=== PATIENT | female | born 1985 | race American Indian/Alaskan Native ===

== ENCOUNTER 2018-09-12 01:02 | Emergency (ER) | payer MEDICAID ==
[2018-09-12 05:25] VITALS: BP 124/81
[2018-09-12] MEDS ORDERED: IBUPROFEN PO ONE (07:59)
--- NOTE | 2018-09-12 08:05 | Emergency Department Report ---
HPI - General Chief Complaint: Extremity Injury, Lower Time Seen by Provider: 09/12/18 07:40 - HPI HPI: This is a 32-year-old female presents ED complaining of pain to the right anterior jacques after accidentally hitting it on the TV box yesterday. Patient says she is presents throbbing pain. This is associated fall or hit her head. She denies any fever, loss of consciousness, ED Past Medical Hx - Past Medical History Previous Medical History?: No - Surgical History Past Surgical History?: Yes Hx Breast Surgery: Yes (reduction) - Social History Smoking Status: Current Every Day Smoker - Medications Home Medications: Home Medications Medication Instructions Recorded Confirmed Last Taken Type Ibuprofen [Motrin 800 MG tab] 800 mg PO TID #20 tablet 09/12/18 Unknown Rx ED Review of Systems ROS: Stated complaint: FALL Other details as noted in HPI Comment: All other systems reviewed and negative Physical Exam - Physical Exam Vital Signs: Vital Signs 09/12/18 09/12/18 09/12/18 01:05 01:06 05:22 Temperature 98.9 F 98.3 F 97.6 F Pulse Rate 102 H 103 H 86 Respiratory 18 18 16 Rate Blood Pressure 122/68 122/68 124/81 O2 Sat by Pulse 100 99 100 Oximetry Physical Exam: GENERAL: Alert and oriented x3, no apparent distress, Normal Gait, atraumatic. HEAD: Head is normocephalic and a-traumatic. NECK: Supple. Non edematous, EXTREMITIES/MUSCULOSKELETAL: No cyanosis, clubbing, rash, lesions or edema. Full ROM bilaterally. LE Pulses 2+ bilaterally. LE and UE 5+ strength bilaterally, no bruising, no lesions. Mild tenderness to palpation of the anterior jacques otherwise no deformity seen NEUROLOGIC: The patient is cooperative with no focal neurologic deficits. SKIN: Warm and dry, No lesions, No ulceration or induration present. ED Course Vital Signs 09/12/18 09/12/18 09/12/18 01:05 01:06 05:22 Temperature 98.9 F 98.3 F 97.6 F Pulse Rate 102 H 103 H 86 Respiratory 18 18 16 Rate Blood Pressure 122/68 122/68 124/81 O2 Sat by Pulse 100 99 100 Oximetry ED Medical Decision Making - Medical Decision Making 30-year-old female presents with a jacques pain from injury. Discussed heat compression 3 times a day Motrin as if her pain Vital signs are normal patient is no acute distress Critical care attestation.: If time is entered above; I have spent that time in minutes in the direct care of this critically ill patient, excluding procedure time. ED Disposition Clinical Impression: Pain in right jacques Disposition: DC-01 TO HOME OR SELFCARE Is pt being admited?: No Does the pt Need Aspirin: No Condition: Stable Instructions: Arthralgia (ED), Heat Pack Application (ED) Additional Instructions: Make sure to follow up with the primary care physician as discussed. Take all your medications as you've been prescribed. If you have any worsening symptoms or develop new symptoms please return to ED immediately. Prescriptions: Ibuprofen [Motrin 800 MG tab] 800 mg PO TID #20 tablet [facility] [Primary Care Provider[facility] - 3-5 Days Forms: Work/School Release Form(ED) Time of Disposition: 08:07
== END 2018-09-12 08:47 | disposition home or self-care (01) ==
LOC: ED 01:02
DX: M79.661 Pain in right lower leg (principal); F17.200 Nicotine dependence, unspecified, uncomplicated; W22.8XXA Striking against or struck by other objects, initial encounter; Y93.89 Activity, other specified; Y92.098 Other place in other non-institutional residence as the place of occurrence of the external cause; Y99.8 Other external cause status
CPT/HCPCS: 99282

== ENCOUNTER 2019-03-20 23:22 | Emergency (ER) | payer MEDICAID ==
--- NOTE | 2019-03-20 23:36 | Emergency Department Report ---
ED Psych HPI - General Stated Complaint: LORENZO JACKSON Time Seen by Provider: 03/20/19 23:30 - History of Present Illness Initial Comments: This is a 33-year-old female nontoxic, well nourished in appearance, no acute signs of distress presents to the ED with c/o of depression with audio hallucinations. Stated has not been taking her psych medications x1 week. Stated that voices are killing her to put self under ground. Denies any SI/HI. Patient denies any fever, chills, nausea, vomiting, chest pain, shortness of breath, headache or stiff neck. Patient otherwise denies any symptoms. Denies any alcohol or drug consumption. Patient denies any allergies. MD Complaint: feels depressed, other (audio hallucinations) Associated Psychiatric Symptoms: depression, racing thoughts, auditory hallucinations History of same: Yes Quality: constant Improves With: none Worsens With: none Associated Symptoms: denies other symptoms. denies: confusion, headache, shortness of breath, nausea, vomiting, syncope, insomnia - Related Data Previous Rx's Medication Instructions Recorded Last Taken Type Ibuprofen [Motrin 800 MG tab] 800 mg PO TID #20 tablet 09/12/18 Unknown Rx Allergies Allergy/AdvReac Type Severity Reaction Status Date / Time No Known Allergies Allergy Unverified 09/12/18 01:04 ED Review of Systems ROS: Stated complaint: LORENZO EVAL Other details as noted in HPI Constitutional: denies: chills, fever Eyes: denies: eye pain, eye discharge, vision change ENT: denies: ear pain, throat pain Respiratory: denies: cough, shortness of breath, wheezing Cardiovascular: denies: chest pain, palpitations Endocrine: no symptoms reported Gastrointestinal: denies: abdominal pain, nausea, diarrhea Genitourinary: denies: urgency, dysuria, discharge Musculoskeletal: denies: back pain, joint swelling, arthralgia Skin: denies: rash, lesions Neurological: denies: headache, weakness, paresthesias Psychiatric: depression, auditory hallucinations. denies: anxiety, visual hallucinations, homicidal thoughts, suicidal thoughts Hematological/Lymphatic: denies: easy bleeding, easy bruising ED Past Medical Hx - Surgical History Hx Breast Surgery: Yes (reduction) - Social History Smoking Status: Current Every Day Smoker - Medications Home Medications: Home Medications Medication Instructions Recorded Confirmed Last Taken Type Ibuprofen [Motrin 800 MG tab] 800 mg PO TID #20 tablet 09/12/18 Unknown Rx ED Physical Exam - General General appearance: alert, in no apparent distress - Head Head exam: Present: atraumatic, normocephalic - Neck Neck exam: Present: normal inspection, full ROM. Absent: tenderness, meningismus, lymphadenopathy - Respiratory Respiratory exam: Present: normal lung sounds bilaterally. Absent: respiratory distress, wheezes - Cardiovascular Cardiovascular Exam: Present: regular rate, normal rhythm - Extremities Exam Extremities exam: Present: full ROM - Back Exam Back exam: Present: full ROM - Neurological Exam Neurological exam: Present: alert, oriented X3, normal gait - Psychiatric Psychiatric exam: Present: depressed, anxious, flat affect. Absent: agitated, manic, homicidal ideation, suicidal ideation - Skin Skin exam: Present: warm, dry, intact, normal color. Absent: rash ED Course - Reevaluation(s) Reevaluation #1: 03/20/19 23:37 Patient is speaking in full sentences with no signs of distress noted. ED Medical Decision Making - Medical Decision Making This is a 33-year-old female that presents with Depression and auditory hallucination. Patient is currently stable and was examined by me. Patient has been placed on 1013 and patient to be examined and evaluated by psychiatrist. Patient will remain in the ER until cleared by psychiatry. Patient is medically cleared in the ED for psychiatry treatment facility. At time of admission, the patient does not seem toxic or ill in appearance. No acute signs of distress noted. Patient agrees to admission treatment plan of care. No further questions noted by the patient. Critical care attestation.: If time is entered above; I have spent that time in minutes in the direct care of this critically ill patient, excluding procedure time. ED Disposition Clinical Impression: Auditory hallucination Depression Qualifiers: Depression Type: unspecified Qualified Code(s): F32.9 - Major depressive disorder, single episode, unspecified Psychosis Qualifiers: Psychosis type: unspecified psychosis type Qualified Code(s): F29 - Unspecified psychosis not due to a substance or known physiological condition Disposition: DC/TX-65 PSY HOSP/PSY UNIT Is pt being admited?: No Condition: Stable
[2019-03-21 00:10] LABS: Basophils # (Auto) 0.1 K/mm3 (0.0-0.1); Basophils % (Auto) 1.3 % (0.0-1.8); Eosinophils # (Auto) 0.1 K/mm3 (0.0-0.4); Hematocrit 34.3 % (30.3-42.9); Hemoglobin 11.2 gm/dl (10.1-14.3); Lymphocytes % (Auto) 35.4 % (13.4-35.0); Mean Corpuscular HGB Conc 33 % (30-34); Mean Corpuscular Volume 83 fl (79-97); Monocytes # (Auto) 0.6 K/mm3 (0.0-0.8); Monocytes % (Auto) 7.1 % (0.0-7.3); Platelet Count 307 K/mm3 (140-440); Red Blood Count 4.11 M/mm3 (3.65-5.03); Red Cell Distribution Width 18.1 % (13.2-15.2)
[2019-03-21 00:22] LABS: Alanine Aminotransferase 9 units/L (7-56); Albumin 4.1 g/dL (3.9-5); BUN/Creatinine Ratio 18; Blood Urea Nitrogen 11 mg/dL (7-17); Calcium 9.1 mg/dL (8.4-10.2); Hemolysis Index 10
[2019-03-21 00:32] LABS: Amphetamine Screen,Urine PRESUMPTIVE NEGATIVE; Benzodiazepines Screen,Urine PRESUMPTIVE NEGATIVE; Cocaine Screen,Urine PRESUMPTIVE NEGATIVE; Methadone Screen,Urine PRESUMPTIVE NEGATIVE; Opiate Screen,Urine PRESUMPTIVE NEGATIVE
[2019-03-21 00:35] LABS: Bilirubin,Urine NEG (Negative); Color,Urine Colorless (Yellow)
[2019-03-21 00:36] LABS: Bacteria,Urine 1+ /HPF (Negative); Blood,Urine NEG (Negative); Protein,Urine <15 mg/dL mg/dL (Negative); RBC,Urine < 1.0 /HPF (0.0-6.0); Urobilinogen,Urine < 2.0 mg/dL (<2.0)
[2019-03-21 00:39] LABS: Cannabinoid Screen,Urine PRESUMPTIVE POSITIVE
--- NOTE | 2019-03-21 09:29 | Consultation ---
History of Present Illness - Reason for Consult Consult date: 03/21/19 Reason for consult: Mental Health Evaluation Requesting physician: JALEEL BERMEO - Chief Complaint Chief complaint: "Why do you want to talk" - History of Present Psychiatric Illness 33 y.o. AA female who presented to the ER for depression and AH's. Today the patient was calm, but uncooperative during the assessment. Several attempts was made to engage the patient, but was unsuccessful. Medications and Allergies Allergies Allergy/AdvReac Type Severity Reaction Status Date / Time No Known Allergies Allergy Unverified 09/12/18 01:04 Home Medications Medication Instructions Recorded Confirmed Last Taken Type Ibuprofen [Motrin 800 MG tab] 800 mg PO TID #20 tablet 09/12/18 03/21/19 Unknown Rx Past psychiatric history - Past Medical History Past Medical History: other (Unable to obtain ) Past Surgical History: Other (Unable to obtain) - past Psychiatric treatment and history psychiatric treatment history: Unable to obtain a psy hx and fam psy hx. - Social History Social history: other (Unable to obtain ) Mental Status Exam - Vital signs Last Vital Signs Temp 98.0 F 03/20/19 23:45 Pulse 90 03/20/19 23:45 Resp 18 03/20/19 23:45 BP 113/71 03/20/19 23:45 Pulse Ox 99 03/20/19 23:45 - Exam Narrative exam: Unable to complete the MSE because the patient would not cooperate. Results Result Diagrams: 03/20/19 23:37 03/20/19 23:37 Abnormal lab results 03/20/19 03/20/19 03/20/19 Range/Units 23:37 23:37 23:37 MCH 27 L (28-32) pg RDW 18.1 H (13.2-15.2) % Lymph % (Auto) 35.4 H (13.4-35.0) % Creatinine 0.6 L (0.7-1.2) mg/dL Urine pH (5.0-7.0) Urine WBC (Auto) (0.0-6.0) /HPF Salicylates < 0.3 L (2.8-20.0) mg/dL Acetaminophen (10.0-30.0) ug/mL 03/20/19 03/21/19 Range/Units 23:37 00:05 MCH (28-32) pg RDW (13.2-15.2) % Lymph % (Auto) (13.4-35.0) % Creatinine (0.7-1.2) mg/dL Urine pH 8.0 H (5.0-7.0) Urine WBC (Auto) 7.0 H (0.0-6.0) /HPF Salicylates (2.8-20.0) mg/dL Acetaminophen < 5.0 L (10.0-30.0) ug/mL All other labs normal. Assessment and Plan Assessment and plan: Impression: Today the patient would not cooperate during the assessment. The patient was positive for marijuana. Recommendation/Plan: Continue 1013 and attempt to reassess the patient in 24 hours. Dispo: The patient was referred to inpatient psy services. Will staff with Dr Analia Bazzi.
[2019-03-21 10:11] VITALS: BP 117/68
== END 2019-03-21 12:46 ==
LOC: EEVIPCON 23:22 → ED 23:22
DX: F32.9 Major depressive disorder, single episode, unspecified (principal); R44.0 Auditory hallucinations; F17.200 Nicotine dependence, unspecified, uncomplicated; Z98.890 Other specified postprocedural states; Z79.899 Other long term (current) drug therapy
CPT/HCPCS: 36415; 80053; 80307; 80320; 81001; 84703; 85025; G0480

== ENCOUNTER 2019-06-25 22:21 | Emergency (ER) | payer MEDICAID ==
--- NOTE | 2019-06-25 23:13 | Emergency Department Report ---
ED Psych HPI - General Chief Complaint: Psych Stated Complaint: LORENZO JACKSON Time Seen by Provider: 06/25/19 23:06 Source: patient, EMS, RN notes reviewed, old records reviewed Mode of arrival: Ambulatory Limitations: No Limitations - History of Present Illness Initial Comments: Chief complaint: "I have parasites inside." HPI: Mrs. Blanco is a 33-year-old female with a history of schizophrenia and bipolar disorder who presents with "I have parasites inside my body eating all my food." She explains that the parasites have been present for several years. She called EMS from a restaurant on [facility] for transport to the emergency department. She denies auditory hallucinations. She denies suicidal or homicidal ideation. She denies pain or discomfort. She does smoke tobacco. She states that she uses alcohol and marijuana occasionally. MD Complaint: other ("Parasites in my body") -: Gradual, year(s) (Several years) Associated Psychiatric Symptoms: none History of same: Yes Quality: constant Improves With: none Worsens With: none Associated Symptoms: denies other symptoms Treatments Prior to Arrival: none - Related Data Home Medications Medication Instructions Recorded Confirmed Last Taken Unobtainable 06/25/19 06/25/19 Unknown Allergies Allergy/AdvReac Type Severity Reaction Status Date / Time No Known Allergies Allergy Unverified 09/12/18 01:04 ED Review of Systems ROS: Stated complaint: MH EVCAROLYNN Other details as noted in HPI Comment: All other systems reviewed and negative Constitutional: denies: fever, malaise Respiratory: denies: cough, shortness of breath Cardiovascular: denies: chest pain ED Past Medical Hx - Past Medical History Previous Medical History?: Yes Hx Psychiatric Treatment: Yes (schizo bipolar) - Surgical History Past Surgical History?: Yes Hx Breast Surgery: Yes (reduction) - Social History Smoking Status: Current Every Day Smoker - Medications Home Medications: Home Medications Medication Instructions Recorded Confirmed Last Taken Type Unobtainable 06/25/19 06/25/19 Unknown History ED Physical Exam - General Limitations: No Limitations General appearance: alert, in no apparent distress, other (Calm and cooperative eating food) - Head Head exam: Present: atraumatic, normocephalic - Eye Eye exam: Present: normal appearance - ENT ENT exam: Present: mucous membranes moist - Neck Neck exam: Present: normal inspection, full ROM - Respiratory Respiratory exam: Present: normal lung sounds bilaterally. Absent: respiratory distress, wheezes, rales, rhonchi - Cardiovascular Cardiovascular Exam: Present: regular rate, normal rhythm, normal heart sounds. Absent: systolic murmur, diastolic murmur, rubs, gallop - GI/Abdominal GI/Abdominal exam: Present: soft, normal bowel sounds. Absent: distended, tenderness, guarding, rebound - Extremities Exam Extremities exam: Present: normal inspection - Neurological Exam Neurological exam: Present: alert, oriented X3 - Psychiatric Psychiatric exam: Present: normal mood, flat affect - Skin Skin exam: Present: warm, dry, intact, normal color. Absent: rash ED Course Vital Signs 06/25/19 06/25/19 22:31 22:46 Temperature 97.9 F Pulse Rate 77 Respiratory 18 20 Rate Blood Pressure 103/63 O2 Sat by Pulse 100 100 Oximetry ED Medical Decision Making - Lab Data Result diagrams: 06/25/19 23:15 06/25/19 23:15 Laboratory Results - last 24 hr 06/25/19 06/25/19 06/25/19 23:15 23:15 23:15 WBC RBC Hgb Hct MCV MCH MCHC RDW Plt Count Lymph % (Auto) [place] % (Auto) Eos % (Auto) Baso % (Auto) Lymph # [place] # Eos # Baso # Seg Neutrophils % Seg Neutrophils # Sodium 137 Potassium 3.8 Chloride 102.8 Carbon Dioxide 20 L Anion Gap 18 BUN 13 Creatinine 0.7 Estimated GFR > 60 BUN/Creatinine Ratio 19 Glucose 97 Calcium 9.2 Total Bilirubin Direct Bilirubin Indirect Bilirubin AST ALT Alkaline Phosphatase Total Protein Albumin Albumin/Globulin Ratio Salicylates < 0.3 L Acetaminophen < 5.0 L Plasma/Serum Alcohol 06/25/19 06/25/19 06/25/19 23:15 23:15 23:15 WBC 8.7 RBC 4.36 Hgb 11.8 Hct 36.2 MCV 83 MCH 27 L MCHC 33 RDW 22.9 H Plt Count 275 Lymph % (Auto) 39.9 H [place] % (Auto) 5.8 Eos % (Auto) 1.3 Baso % (Auto) 0.8 Lymph # 3.5 [place] # 0.5 Eos # 0.1 Baso # 0.1 Seg Neutrophils % 52.2 Seg Neutrophils # 4.5 Sodium Potassium Chloride Carbon Dioxide Anion Gap BUN Creatinine Estimated GFR BUN/Creatinine Ratio Glucose Calcium Total Bilirubin < 0.20 Direct Bilirubin < 0.2 Indirect Bilirubin 0.0 AST 16 ALT 10 Alkaline Phosphatase 73 Total Protein 6.9 Albumin 4.2 Albumin/Globulin Ratio 1.6 Salicylates Acetaminophen Plasma/Serum Alcohol < 0.01 - Medical Decision Making Ms. Blanco is a 33-year-old female with history of schizophrenia and bipolar disorder who presents with persistent possible delusions of parasites in her body. This delusion appears to be chronic. Delusion does not appear to cause her any distress or harm. She does not appear to be a harm to herself or others. CBC chemistry serum toxicology all within normal limits. She is discharged home. She is agreeable with discharge. Critical care attestation.: If time is entered above; I have spent that time in minutes in the direct care of this critically ill patient, excluding procedure time. ED Disposition Clinical Impression: Schizophrenia, Bipolar disorder Disposition: DC-01 TO HOME OR SELFCARE Is pt being admited?: No Does the pt Need Aspirin: No Condition: Stable Additional Instructions: Please follow-up with your psychiatrist this week.
[2019-06-25 23:41] LABS: Basophils # (Auto) 0.1 K/mm3 (0.0-0.1); Basophils % (Auto) 0.8 % (0.0-1.8); Eosinophils # (Auto) 0.1 K/mm3 (0.0-0.4); Eosinophils % (Auto) 1.3 % (0.0-4.3); Hematocrit 36.2 % (30.3-42.9); Hemoglobin 11.8 gm/dl (10.1-14.3); Lymphocytes # (Auto) 3.5 K/mm3 (1.2-5.4); Lymphocytes % (Auto) 39.9 % (13.4-35.0); Mean Corpuscular HGB Conc 33 % (30-34); Mean Corpuscular Volume 83 fl (79-97); Monocytes # (Auto) 0.5 K/mm3 (0.0-0.8); Monocytes % (Auto) 5.8 % (0.0-7.3); Platelet Count 275 K/mm3 (140-440); Red Blood Count 4.36 M/mm3 (3.65-5.03)
[2019-06-25 23:43] LABS: Red Cell Distribution Width 22.9 % (13.2-15.2)
[2019-06-25 23:54] LABS: BUN/Creatinine Ratio 19; Blood Urea Nitrogen 13 mg/dL (7-17); Calcium 9.2 mg/dL (8.4-10.2); Hemolysis Index 5
[2019-06-25 23:59] LABS: Alanine Aminotransferase 10 units/L (7-56); Albumin 4.2 g/dL (3.9-5)
[2019-06-26 00:03] LABS: Bilirubin,Direct < 0.2 mg/dL (0-0.2)
[2019-06-26 04:22] VITALS: BP 108/62
== END 2019-06-26 04:00 | disposition home or self-care (01) ==
LOC: ED 22:21
DX: F20.9 Schizophrenia, unspecified (principal); F31.9 Bipolar disorder, unspecified; F17.200 Nicotine dependence, unspecified, uncomplicated; Z98.890 Other specified postprocedural states
CPT/HCPCS: 36415; 80048; 80076; 80320; 85025; G0480

== ENCOUNTER 2019-08-20 02:18 | Emergency (ER) | payer MEDICAID ==
[2019-08-20 02:34] VITALS: BP 118/78
[2019-08-20 03:42] LABS: Basophils # (Auto) 0.1 K/mm3 (0.0-0.1); Basophils % (Auto) 1.2 % (0.0-1.8); Eosinophils # (Auto) 0.1 K/mm3 (0.0-0.4); Eosinophils % (Auto) 1.2 % (0.0-4.3); Hematocrit 36.2 % (30.3-42.9); Hemoglobin 12.5 gm/dl (10.1-14.3); Lymphocytes # (Auto) 4.1 K/mm3 (1.2-5.4); Lymphocytes % (Auto) 41.1 % (13.4-35.0); Mean Corpuscular HGB Conc 35 % (30-34); Mean Corpuscular Volume 84 fl (79-97); Monocytes # (Auto) 0.5 K/mm3 (0.0-0.8); Monocytes % (Auto) 4.6 % (0.0-7.3); Platelet Count 282 K/mm3 (140-440); Red Blood Count 4.33 M/mm3 (3.65-5.03)
[2019-08-20 03:52] LABS: BUN/Creatinine Ratio 21; Blood Urea Nitrogen 15 mg/dL (7-17); Calcium 9.1 mg/dL (8.4-10.2); Hemolysis Index 19
[2019-08-20 03:55] LABS: Amphetamine Screen,Urine PRESUMPTIVE NEGATIVE; Benzodiazepines Screen,Urine PRESUMPTIVE NEGATIVE; Cannabinoid Screen,Urine PRESUMPTIVE NEGATIVE; Cocaine Screen,Urine PRESUMPTIVE NEGATIVE; Methadone Screen,Urine PRESUMPTIVE NEGATIVE; Opiate Screen,Urine PRESUMPTIVE NEGATIVE
[2019-08-20 04:04] LABS: Bacteria,Urine 1+ /HPF (Negative); Bilirubin,Urine NEG (Negative); Blood,Urine NEG (Negative); Color,Urine Yellow (Yellow); Mucus,Urine FEW /HPF; Protein,Urine <15 mg/dL mg/dL (Negative)
[2019-08-20 04:05] LABS: HCG Qualitative,Urine Negative (Negative)
--- NOTE | 2019-08-20 04:07 | Emergency Department Report ---
Chief Complaint: Medical Clearance Stated Complaint: ABDOMINAL PAIN Time Seen by Provider: 08/20/19 03:50 - HPI History of Present Illness: This is a 33-year-old female presents to the ED wanting referrals for home placement stating that she left the custodial she was currently - ROS Review of Systems: As noted in HPI - Exam Vital Signs: Vital Signs 08/20/19 02:23 Temperature 97.6 F Pulse Rate 91 H Respiratory 18 Rate Blood Pressure 118/78 O2 Sat by Pulse 98 Oximetry Physical Exam: GENERAL: Alert and oriented x3, no apparent distress, Normal Gait, atraumatic. HEAD: Head is normocephalic and a-traumatic. PSYCHIATRIC: Mood is congruent with affect, denies suicidal or homicidal ideations. SKIN: Warm and dry, No lesions, No ulceration or induration present. MSE screening note: Focused history and physical exam performed. Due to findings the following was ordered: ED Medical Decision Making - Lab Data Result diagrams: 08/20/19 03:12 08/20/19 03:12 Laboratory Last Values WBC 10.1 K/mm3 (4.5-11.0) 08/20/19 03:12 RBC 4.33 M/mm3 (3.65-5.03) 08/20/19 03:12 Hgb 12.5 gm/dl (10.1-14.3) 08/20/19 03:12 Hct 36.2 % (30.3-42.9) 08/20/19 03:12 MCV 84 fl (79-97) 08/20/19 03:12 MCH 29 pg (28-32) 08/20/19 03:12 MCHC 35 % (30-34) H 08/20/19 03:12 RDW 20.0 % (13.2-15.2) H 08/20/19 03:12 Plt Count 282 K/mm3 (140-440) 08/20/19 03:12 Lymph % (Auto) 41.1 % (13.4-35.0) H 08/20/19 03:12 [place] % (Auto) 4.6 % (0.0-7.3) 08/20/19 03:12 Eos % (Auto) 1.2 % (0.0-4.3) 08/20/19 03:12 Baso % (Auto) 1.2 % (0.0-1.8) 08/20/19 03:12 Lymph # 4.1 K/mm3 (1.2-5.4) 08/20/19 03:12 [place] # 0.5 K/mm3 (0.0-0.8) 08/20/19 03:12 Eos # 0.1 K/mm3 (0.0-0.4) 08/20/19 03:12 Baso # 0.1 K/mm3 (0.0-0.1) 08/20/19 03:12 Seg Neutrophils % 51.9 % (40.0-70.0) 08/20/19 03:12 Seg Neutrophils # 5.2 K/mm3 (1.8-7.7) 08/20/19 03:12 Sodium 136 mmol/L (137-145) L 08/20/19 03:12 Potassium 4.1 mmol/L (3.6-5.0) 08/20/19 03:12 Chloride 102.5 mmol/L (98-107) 08/20/19 03:12 Carbon Dioxide 23 mmol/L (22-30) 08/20/19 03:12 Anion Gap 15 mmol/L 08/20/19 03:12 BUN 15 mg/dL (7-17) 08/20/19 03:12 Creatinine 0.7 mg/dL (0.7-1.2) 08/20/19 03:12 Estimated GFR > 60 ml/min 08/20/19 03:12 BUN/Creatinine Ratio 21 % 08/20/19 03:12 Glucose 90 mg/dL (65-100) 08/20/19 03:12 Calcium 9.1 mg/dL (8.4-10.2) 08/20/19 03:12 Urine Color Yellow (Yellow) 08/20/19 Unknown Urine Turbidity Clear (Clear) 08/20/19 Unknown Urine pH 5.0 (5.0-7.0) 08/20/19 Unknown Ur Specific [place] 1.028 (1.003-1.030) 08/20/19 Unknown Urine Protein <15 mg/dl mg/dL (Negative) 08/20/19 Unknown Urine Glucose (UA) Neg mg/dL (Negative) 08/20/19 Unknown Urine Ketones Neg mg/dL (Negative) 08/20/19 Unknown Urine Blood Neg (Negative) 08/20/19 Unknown Urine Nitrite Neg (Negative) 08/20/19 Unknown Urine Bilirubin Neg (Negative) 08/20/19 Unknown Urine Urobilinogen 2.0 mg/dL (<2.0) 08/20/19 Unknown Ur Leukocyte Esterase Tr (Negative) 08/20/19 Unknown Urine WBC (Auto) 5.0 /HPF (0.0-6.0) 08/20/19 Unknown Urine RBC (Auto) 3.0 /HPF (0.0-6.0) 08/20/19 Unknown U Epithel Cells (Auto) 9.0 /HPF (0-13.0) 08/20/19 Unknown Urine Bacteria (Auto) 1+ /HPF (Negative) 08/20/19 Unknown Urine Mucus Few /HPF 08/20/19 Unknown Urine HCG, Qual Negative (Negative) 08/20/19 Unknown Salicylates < 0.3 mg/dL (2.8-20.0) L 08/20/19 03:12 Urine Opiates Screen Presumptive negative 08/20/19 Unknown Urine Methadone Screen Presumptive negative 08/20/19 Unknown Acetaminophen < 5.0 ug/mL (10.0-30.0) L 08/20/19 03:12 Ur Barbiturates Screen Presumptive negative 08/20/19 Unknown Ur Phencyclidine Scrn Presumptive negative 08/20/19 Unknown Ur Amphetamines Screen Presumptive negative 08/20/19 Unknown U Benzodiazepines Scrn Presumptive negative 08/20/19 Unknown Urine Cocaine Screen Presumptive negative 08/20/19 Unknown U Marijuana (THC) Screen Presumptive negative 08/20/19 Unknown Drugs of Abuse Note Disclamer 08/20/19 Unknown - Medical Decision Making 33-year-old female presents for home placement. Patient was given resources and referral for group homes. Patient had no acute distress or had any respiratory distress ED Disposition for MSE Clinical Impression: Worried well Disposition: DC-01 TO HOME OR SELFCARE Is pt being admited?: No Does the pt Need Aspirin: No Condition: Stable Additional Instructions: Make sure to follow up with the primary care physician as discussed. If you have any worsening symptoms or develop new symptoms please return to ED immediately. Referrals: PRIMARY CARE, [Primary Care Provider] - 3-5 Days [facility] [Outside] - 3-5 Days [facility] [place] [Outside] - 3-5 Days Forms: Work/School Release Form(ED) Time of Disposition: 04:30
== END 2019-08-20 04:54 | disposition home or self-care (01) ==
LOC: ED 02:18
DX: Z71.1 Person with feared health complaint in whom no diagnosis is made (principal); Z79.899 Other long term (current) drug therapy
CPT/HCPCS: 36415; 80048; 80307; 80320; 81001; 81025; 85025; G0480

== ENCOUNTER 2019-12-22 21:31 | Emergency (ER) | payer MEDICAID ==
[2019-12-22 23:12] LABS: Basophils # (Auto) 0.1 K/mm3 (0.0-0.1); Basophils % (Auto) 1.3 % (0.0-1.8); Eosinophils # (Auto) 0.1 K/mm3 (0.0-0.4); Lymphocytes # (Auto) 3.8 K/mm3 (1.2-5.4); Lymphocytes % (Auto) 32.3 % (13.4-35.0); Mean Corpuscular HGB Conc 36 % (30-34); Mean Corpuscular Volume 86 fl (79-97); Monocytes # (Auto) 0.6 K/mm3 (0.0-0.8); Monocytes % (Auto) 5.2 % (0.0-7.3); Platelet Count 304 K/mm3 (140-440); Red Cell Distribution Width 18.7 % (13.2-15.2)
[2019-12-22 23:24] LABS: Blood Urea Nitrogen 15 mg/dL (7-17); Calcium 9.2 mg/dL (8.4-10.2); Hemolysis Index 9
[2019-12-22 23:29] LABS: BUN/Creatinine Ratio 21; Hematocrit 35.2 % (30.3-42.9); Hemoglobin 12.8 gm/dl (10.1-14.3)
--- NOTE | 2019-12-23 01:05 | Emergency Department Report ---
ED Psych HPI - General Chief Complaint: Psych Stated Complaint: MH Time Seen by Provider: 12/23/19 00:54 Source: patient, EMS Mode of arrival: Ambulatory - History of Present Illness Initial Comments: Chief complaint: "I just want another snf." HPI: This is a 34-year-old female with history of schizophrenia bipolar disorder who states that she wants to be placed in another snf. She is concerned about the sanitation standards at the residence. She does not get along with the residents and staff. She does not have suicidal homicidal ideation. She is currently denies hallucinations. She does not have any physical complaints. She requests placement or referral to home researchers. She has stayed at homeless shelters in [facility]. She is unfamiliar with this area. MD Complaint: other (Dissatisfied with living conditions) Associated Psychiatric Symptoms: none Quality: constant Improves With: none Worsens With: none Context: other (Patient has been compliant with psychiatric medications) Associated Symptoms: denies other symptoms Treatments Prior to Arrival: none - Related Data Home Medications Medication Instructions Recorded Confirmed Last Taken Unobtainable 06/25/19 06/25/19 Unknown Allergies Allergy/AdvReac Type Severity Reaction Status Date / Time No Known Allergies Allergy Unverified 09/12/18 01:04 ED Review of Systems ROS: Stated complaint: MH Other details as noted in HPI Comment: All other systems reviewed and negative Constitutional: denies: fever, malaise Respiratory: denies: cough, shortness of breath Cardiovascular: denies: chest pain Gastrointestinal: denies: abdominal pain, nausea, vomiting Psychiatric: denies: anxiety, depression, auditory hallucinations, visual hallucinations, homicidal thoughts, suicidal thoughts ED Past Medical Hx - Past Medical History Previous Medical History?: Yes Hx Diabetes: Yes Hx Psychiatric Treatment: Yes (schizo bipolar) - Surgical History Past Surgical History?: Yes Hx Breast Surgery: Yes (reduction) - Social History Smoking Status: Current Every Day Smoker Substance Use Type: Alcohol, Marijuana - Medications Home Medications: Home Medications Medication Instructions Recorded Confirmed Last Taken Type Unobtainable 06/25/19 06/25/19 Unknown History ED Physical Exam - General Limitations: No Limitations General appearance: alert, in no apparent distress, other (Pleasant cooperative insightful ) - Head Head exam: Present: atraumatic, normocephalic - Eye Eye exam: Present: normal appearance - ENT ENT exam: Present: mucous membranes moist - Neck Neck exam: Present: normal inspection, full ROM - Respiratory Respiratory exam: Present: normal lung sounds bilaterally. Absent: respiratory distress, wheezes, rales, rhonchi - Cardiovascular Cardiovascular Exam: Present: regular rate, normal rhythm, normal heart sounds. Absent: systolic murmur, diastolic murmur, rubs, gallop - GI/Abdominal GI/Abdominal exam: Present: soft, normal bowel sounds. Absent: distended, tenderness, guarding, rebound - Extremities Exam Extremities exam: Present: normal inspection - Back Exam Back exam: Present: normal inspection - Neurological Exam Neurological exam: Present: alert, oriented X3 - Psychiatric Psychiatric exam: Present: normal affect, normal mood. Absent: anxious, flat affect, manic, homicidal ideation, suicidal ideation, other - Skin Skin exam: Present: warm, dry, intact, normal color. Absent: rash ED Course Vital Signs 12/22/19 22:01 Temperature 98.0 F Pulse Rate 106 H Respiratory 18 Rate Blood Pressure 109/64 O2 Sat by Pulse 93 Oximetry ED Medical Decision Making - Lab Data Result diagrams: 12/22/19 22:52 12/22/19 22:52 Laboratory Results - last 24 hr 12/22/19 12/22/19 12/22/19 22:52 22:52 22:52 WBC RBC Hgb Hct MCV MCH MCHC RDW Plt Count Lymph % (Auto) [place] % (Auto) Eos % (Auto) Baso % (Auto) Lymph # [place] # Eos # Baso # Seg Neutrophils % Seg Neutrophils # Sodium 138 Potassium 4.0 Chloride 105.2 Carbon Dioxide 21 L Anion Gap 16 BUN 15 Creatinine 0.7 Estimated GFR > 60 BUN/Creatinine Ratio 21 Glucose 110 H Calcium 9.2 HCG, Qual Salicylates < 0.3 L Acetaminophen 5.0 L Plasma/Serum Alcohol 12/22/19 12/22/19 12/22/19 22:52 22:52 22:52 WBC 11.8 H RBC 4.10 Hgb 12.8 Hct 35.2 MCV 86 MCH 31 MCHC 36 H RDW 18.7 H Plt Count 304 Lymph % (Auto) 32.3 [place] % (Auto) 5.2 Eos % (Auto) 1.0 Baso % (Auto) 1.3 Lymph # 3.8 [place] # 0.6 Eos # 0.1 Baso # 0.1 Seg Neutrophils % 60.2 Seg Neutrophils # 7.1 Sodium Potassium Chloride Carbon Dioxide Anion Gap BUN Creatinine Estimated GFR BUN/Creatinine Ratio Glucose Calcium HCG, Qual Negative Salicylates Acetaminophen Plasma/Serum Alcohol < 0.01 - Medical Decision Making Mrs. Blanco has a history of schizophrenia and bipolar disorder. She is currently symptom-free. From a physical standpoint she denies any concerns. From a mental health standpoint, she is insightful cooperative without suicidal homicidal ideation. No evidence of internal stimuli. Nursing staff members provided her resources for homeless shelters. She is discharged to self-care I reviewed labs obtained according to triage protocol. CBC chemistry serum toxicology all within normal limits. Critical care attestation.: If time is entered above; I have spent that time in minutes in the direct care of this critically ill patient, excluding procedure time. ED Disposition Clinical Impression: Problem situation relating to social and personal history, Schizophrenia, Bipolar disorder Disposition: DC-01 TO HOME OR SELFCARE Is pt being admited?: No Does the pt Need Aspirin: No Condition: Stable
[2019-12-23 01:23] VITALS: BP 132/78
== END 2019-12-23 01:25 | disposition home or self-care (01) ==
LOC: ED 21:31
DX: F20.9 Schizophrenia, unspecified (principal); F31.9 Bipolar disorder, unspecified; Z72.89 Other problems related to lifestyle; E11.9 Type 2 diabetes mellitus without complications; F17.200 Nicotine dependence, unspecified, uncomplicated; F12.10 Cannabis abuse, uncomplicated; Z98.890 Other specified postprocedural states
CPT/HCPCS: 36415; 80048; 80320; 84703; 85025; G0480

== ENCOUNTER 2021-12-24 09:22 | Emergency (ER) | payer MEDICAID ==
[2021-12-24 11:27] LABS: Basophils # (Auto) 0.1 K/mm3 (0.0-0.1); Basophils % (Auto) 0.6 % (0.0-1.8); Eosinophils # (Auto) 0.1 K/mm3 (0.0-0.4); Hematocrit 38.3 % (30.3-42.9); Hemoglobin 12.5 gm/dl (10.1-14.3); Lymphocytes # (Auto) 2.6 K/mm3 (1.2-5.4); Lymphocytes % (Auto) 30.8 % (13.4-35.0); Mean Corpuscular HGB Conc 33 % (30-34); Mean Corpuscular Volume 91 fl (79-97); Monocytes # (Auto) 0.6 K/mm3 (0.0-0.8); Monocytes % (Auto) 6.6 % (0.0-7.3); Platelet Count 304 K/mm3 (140-440); Red Blood Count 4.21 M/mm3 (3.65-5.03); Red Cell Distribution Width 13.7 % (13.2-15.2)
[2021-12-24 11:41] LABS: BUN/Creatinine Ratio 14; Blood Urea Nitrogen 10 mg/dL (7-17); Calcium 9.1 mg/dL (8.4-10.2); Hemolysis Index 11
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
[2021-12-24 13:35] LABS: Amphetamine Screen,Urine Negative; Benzodiazepines Screen,Urine Negative; Cannabinoid Screen,Urine Negative; Cocaine Screen,Urine Negative; Methadone Screen,Urine Negative; Opiate Screen,Urine Negative
[2021-12-24 13:43] LABS: Color,Urine Straw (Yellow)
[2021-12-24] MEDS: risperiDONE 1 MG TAB PO SCH ×2 (14:39→21:48)
--- NOTE | 2021-12-25 09:49 | Progress Note ---
Subjective - Reason for Consult Consult date: 12/25/21 Reason for consult: mental health evaluation - Chief Complaint Chief complaint: The patient was seen this morning. She reports feeling better " since I'm out of the house." She reports sleep and appetite as good. The patient denies any current suicidal/homicidal ideation and denies hallucinations. REVIEW OF SYSTEMS Constitutional: Negative for weight loss ENT: Negative for stridor Respiratory: Negative for cough or hemoptysis All other systems reviewed and are negative MENTAL STATUS EXAMINATION General Appearance and Behavior: Age appropriate, good hygiene, wearing appropriate clothes, cooperative Cooperation: cooperative Psychomotor Behavior: Normal Mood: calm Affect and affective range:congruent Thought Process:Goal directed Thought Content: Reality oriented Speech: Normal Intellectual Functioning: Average Suicidal Ideation: Denies Homicidal Ideation: Denies Hallucination: Denies Impulse Control:Limited Insight and Judgment: Limited insight and judgment Memory: Intact Attention:Attentive Orientation: Alert and oriented Diagnoses: (1) Schizophrenia Treatment Plan: DC-1013 Continue Risperdal 1 mg QHS Continuing home meds Patient should be compliant with medications and not to use drugs and not to drink alcohol. PSYCHOTHERAPY: Supportive psychotherapy provided MEDICAL: Per primary team DELIRIUM PRECAUTIONS: Please re-orient patient frequently, keep lights on during the day, and minimize benzodiazepines and opiates as these medications could worsen patient's confusion. 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 The replenishment buyer will provide patient with psychiatric outpatient resources. FOLLOW-UP: Will sign off. Thank you for the consult. Please contact with any questions and/or concerns. Case staffed with Dr. Villalobos Medications and Allergies Mental Status Exam - Vital signs Last Vital Signs Temp 97.7 F 12/24/21 22:16 Pulse 89 12/24/21 22:16 Resp 18 12/24/21 22:16 BP 144/98 12/24/21 22:16 Pulse Ox 96 12/24/21 22:16
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
[2021-12-25 15:08] VITALS: BP 124/82
== END 2021-12-25 14:51 | disposition home or self-care (01) ==
LOC: EEVIPCON 09:22 → ED 09:22
DX: I46.9 Cardiac arrest, cause unspecified (principal); T14.8XXA Other injury of unspecified body region, initial encounter; F17.200 Nicotine dependence, unspecified, uncomplicated; F10.20 Alcohol dependence, uncomplicated; F12.90 Cannabis use, unspecified, uncomplicated; E11.9 Type 2 diabetes mellitus without complications; F20.9 Schizophrenia, unspecified; Z20.822 Contact with and (suspected) exposure to COVID-19
CPT/HCPCS: 36415; 80048; 80307; 81001; 85025; 87086; 99284; U0003; 80320; G0480